=== PATIENT | female | born 1950 | race African-American/Black ===

== ENCOUNTER 2017-07-16 00:51 | Inpatient (IN) | payer BC, OTHER ==
[~2017-07-16] VITALS: Ht 162.6 cm; Wt 86.6 kg
[2017-07-16] VITALS (7 sets, daily range): BP systolic 162–188; BP diastolic 77–93
--- NOTE | ~2017-07-16 | HC ---
[facility] [place] [address] CONSULTATION Name: TONECECY Timmons Room #: 421-P ADM IN M.R.#: [id number] Admission: 07/16/17 Attend Phys: Alexis Odom DO Discharge: Date of : 50 Report #: [id number] THIS REPORT FOR: //name// CC: Alexis Borrero REASON FOR CONSULTATION: Abdominal pain consistent with small-bowel obstruction. HISTORY OF PRESENT ILLNESS: The patient is a 66-year-old who started to have abdominal pain at about 8:00 last night. She had some food, but not much, at 6:00. The pain started in the lower part of her abdomen and then moved up to the upper abdomen. It was sharp and cramping. She said about 30 years ago, she had an episode similar to this. Four years ago, she had a milder episode that did not require hospitalization. The patient came to the Emergency Room. She made herself vomit when she was at home and then she had another episode of vomiting when she was here. With the pain medication, she does feel better. She was doing pretty well and then this afternoon, her pain came back again located in the epigastric area. She had a bowel movement today. She had several bowel movements yesterday prior to the onset of pain. The patient did have a significant surgical history with a midline scar. She had a hysterectomy. She thinks her appendix was removed at that time. She says she had an abscess in the ovary. Today, the patient has had 2 doses of morphine. The patient's pain has improved with the shot. She is not having severe pain at this point. She has not passed any gas. She had a KUB, which was nonspecific. CT scan and KUB were reviewed. CT KUB was also shown to the patient. The CT scan does show bowel obstruction and fecalization of small bowel content, edema of the bowel located just below the umbilicus area. The distal small bowel is decompressed. PHYSICAL EXAMINATION: GENERAL: The patient is alert and oriented. She is not in acute distress. ABDOMEN: Mild to moderately distended. She does have bowel sounds that are present, slightly high pitched. She has a long midline scar and scar does look at the umbilical level. She does have moderate tenderness to palpation, particularly in this area. There is no rigidity, no rebound. IMPRESSION: The patient is a 66-year-old who started having pain last night. The clinical picture is consistent with a bowel obstruction. This is likely due to adhesions from prior surgery. She could have an adhesive band there. The KUB was reviewed and was nonspecific this afternoon. I do not think it is necessary that her bowel obstruction is resolved. I think she has a distended bowel that is fluid filled and not visible on the KUB. Her stomach and upper small bowel were not very distended. I am not sure NG tube will help that much. She has not thrown up any more. The patient has urinated. She says her urine looks pretty clear, light color. There are no I's and O's reported. [address] [address] CONSULTATION Name: WAYNECECY Room #: 421-P ADM IN M.R.#: [id number] Admission: 07/16/17 Attend Phys: Alexis Odom DO Discharge: Date of : 50 Report #: [id number] LABORATORY DATA: Her white count is pretty normal at 11.5. Lipase is normal. We will do lactic acid in the morning and amylase in the morning. I do not think she has compromised bowel at this point. If she does not resolve, she may need surgical intervention. Possibly laparoscopic approach. <ELECTRONICALLY SIGNED> By: Austin Thurman MD 07/17/17 1426 [id number] [id number] Austin Thurman MD /nt
[~2017-07-16 00:51] MED LIST: AMARYL2 MG PO; BACTRIM DS TAB1 EACH PO; CARVEDILOL12.5 MG PO; CEFTIN 250 MG250 MG PO; CRESTOR10 MG PO; DILTIAZEM ER360 MG PO; HYDRALAZINE 2525 MG PO; HYDRALAZINE 5050 MG PO; HYZAAR 100-251 EACH PO; IBUPROFEN 600600 M1 PO; KLOR-CON 1010 MEQ PO; KLOR-CON M2020 MEQ PO; METFORMIN HCL500 MG PO; ONDANSETRON HCL4 M2 PO; PANTOPRAZOLE SO40 M1 PO; POTASSIUM20 PO; ROSUVASTATIN CA40 MG PO; SLOW-MAG64 MG PO; TAZTIA XT360 M1 PO; TYLENOL325 MG PO; ZOFRAN ODT4 MG PO
[2017-07-16 01:26] LABS: ABSOLUTE NEUTROPHILS 8.8 thou/uL (1.4-8.2); BASOPHILS 0.6 % (0.0-2.0); EOSINOPHILS 0.8 % (0.0-3.0); HEMATOCRIT 37.3 % (37.0-47.0); HEMOGLOBIN 12.2 gm/dL (12.0-15.0); LYMPHOCYTES 16.2 % (24.0-44.0); MCH 25.4 pg (26.0-34.0); MCHC 32.6 g/dL (28.0-37.0); MCV 77.9 fL (80.0-100.0); MONOCYTES 6.2 % (1.0-8.0); PLATELET COUNT 317 thou/uL (150-400); POLYS 76.2 % (36.0-66.0); RBC 4.79 mil/uL (4.20-5.00); RDW 14.8 % (10.5-14.5); WBC 11.5 thou/uL (4.0-11.0)
[2017-07-16 01:33] LABS: CALCIUM 9.7 mg/dL (8.5-10.1)
[2017-07-16 01:36] LABS: POTASSIUM 2.9 mmol/L (3.5-5.1)
[2017-07-16 01:38] LABS: ALBUMIN 3.5 g/dL (3.4-5.0); TOTAL BILIRUBIN 0.5 mg/dL (<0.1-1.0); TOTAL PROTEIN 7.5 g/dL (6.4-8.2)
[2017-07-16 02:09] LABS: URINE BILIRUBIN NEGATIVE (Negative); URINE BLOOD NEGATIVE (Negative); URINE CLARITY CLEAR; URINE COLOR YELLOW; URINE GLUCOSE-RANDOM* NEGATIVE (Negative); URINE KETONES NEGATIVE (Negative); URINE LEUKOCYTES-REFLEX NEGATIVE (Negative); URINE NITRITE-REFLEX NEGATIVE (Negative); URINE PROTEIN (DIPSTICK) NEGATIVE (Negative); URINE SPECIFIC GRAVITY 1.015 (1.005-1.035); URINE UROBILINOGEN 0.2 E.U./dl (0.2-1.0)
[2017-07-17] VITALS: BP 150/78
[2017-07-17 03:59] VITALS: BP 145/79
[2017-07-17 06:42] LABS: ABSOLUTE NEUTROPHILS 4.8 thou/uL (1.4-8.2); BASOPHILS 0.5 % (0.0-2.0); EOSINOPHILS 1.8 % (0.0-3.0); HEMATOCRIT 32.5 % (37.0-47.0); HEMOGLOBIN 10.6 gm/dL (12.0-15.0); LYMPHOCYTES 27.2 % (24.0-44.0); MCH 25.5 pg (26.0-34.0); MCHC 32.4 g/dL (28.0-37.0); MCV 78.5 fL (80.0-100.0); MONOCYTES 10.4 % (1.0-8.0); PLATELET COUNT 271 thou/uL (150-400); POLYS 60.1 % (36.0-66.0); RBC 4.14 mil/uL (4.20-5.00); RDW 15.2 % (10.5-14.5)
[2017-07-17 06:52] LABS: CALCIUM 8.4 mg/dL (8.5-10.1); CREATININE 0.8 mg/dL (0.6-1.0); POTASSIUM 3.2 mmol/L (3.5-5.1)
[2017-07-17 08:05] VITALS: BP 161/77
[2017-07-17 15:31] VITALS: BP 169/68
[2017-07-17 22:37] VITALS: BP 191/89
[2017-07-17 22:59] VITALS: BP 164/80
[2017-07-18 04:23] VITALS: BP 121/82
[2017-07-18 04:47] VITALS: BP 182/83
[2017-07-18 04:54] VITALS: BP 182/83
[2017-07-18 05:28] LABS: ABSOLUTE NEUTROPHILS 4.1 thou/uL (1.4-8.2); BASOPHILS 0.7 % (0.0-2.0); EOSINOPHILS 3.2 % (0.0-3.0); HEMOGLOBIN 11.4 gm/dL (12.0-15.0); LYMPHOCYTES 30.4 % (24.0-44.0); MCH 25.7 pg (26.0-34.0); MCHC 32.7 g/dL (28.0-37.0); MCV 78.6 fL (80.0-100.0); MONOCYTES 11.3 % (1.0-8.0); PLATELET COUNT 295 thou/uL (150-400); POLYS 54.4 % (36.0-66.0); RBC 4.45 mil/uL (4.20-5.00); RDW 14.7 % (10.5-14.5); WBC 7.5 thou/uL (4.0-11.0)
[2017-07-18 05:51] LABS: CALCIUM 8.8 mg/dL (8.5-10.1); CREATININE 0.7 mg/dL (0.6-1.0); POTASSIUM 3.4 mmol/L (3.5-5.1)
[2017-07-18 07:31] VITALS: BP 154/73
[2017-07-18 15:53] VITALS: BP 177/74
[2017-07-18 20:47] VITALS: BP 115/85
[2017-07-19 00:39] VITALS: BP 167/79
[2017-07-19 04:36] VITALS: BP 176/85
[2017-07-19 05:33] LABS: BASOPHILS 0.8 % (0.0-2.0); EOSINOPHILS 2.5 % (0.0-3.0); HEMATOCRIT 33.8 % (37.0-47.0); LYMPHOCYTES 29.4 % (24.0-44.0); MCH 25.5 pg (26.0-34.0); MCHC 32.7 g/dL (28.0-37.0); MONOCYTES 10.7 % (1.0-8.0); PLATELET COUNT 294 thou/uL (150-400); POLYS 56.6 % (36.0-66.0); RBC 4.33 mil/uL (4.20-5.00); RDW 15.2 % (10.5-14.5); WBC 8.8 thou/uL (4.0-11.0)
[2017-07-19 05:40] LABS: CALCIUM 8.8 mg/dL (8.5-10.1); CREATININE 0.8 mg/dL (0.6-1.0); POTASSIUM 3.4 mmol/L (3.5-5.1)
[2017-07-19 07:40] VITALS: BP 174/81
[2017-07-19 13:37] VITALS: BP 174/81
== END 2017-07-19 14:30 | disposition home or self-care (01) | DRG 390 ==
LOC: ER 00:51 → EROBS 03:25 → 4E 03:25
PROVIDERS: Emergency Medicine; Family Medicine
DX: K56.600 Partial intestinal obstruction, unspecified as to cause (principal); E11.9 Type 2 diabetes mellitus without complications; I10 Essential (primary) hypertension; J45.909 Unspecified asthma, uncomplicated; E87.6 Hypokalemia; E83.42 Hypomagnesemia; Z79.84 Long term (current) use of oral hypoglycemic drugs; Z79.899 Other long term (current) drug therapy; Z87.891 Personal history of nicotine dependence; Z86.010 Personal history of colon polyps; Z90.49 Acquired absence of other specified parts of digestive tract; Z90.710 Acquired absence of both cervix and uterus
CPT/HCPCS: 10183

== ENCOUNTER 2019-11-20 21:06 | Emergency (ER) | payer BC, OTHER ==
[~2019-11-20] VITALS: Ht 162.6 cm; Wt 86.2 kg
[2019-11-20] MEDS ORDERED: CARVEDILOL25 MG PO (21:19)
[2019-11-20] MEDS ORDERED: HYDRALAZINE 5050 MG PO (21:19)
[2019-11-20 22:09] LABS: ABSOLUTE NEUTROPHILS 11.1 thou/uL (1.4-8.2); BASOPHILS 0.6 % (0.0-2.0); EOSINOPHILS 0.3 % (0.0-3.0); HEMATOCRIT 37.2 % (37.0-47.0); HEMOGLOBIN 12.1 gm/dL (12.0-15.0); LYMPHOCYTES 14.9 % (24.0-44.0); MCH 25.8 pg (26.0-34.0); MCHC 32.5 g/dL (28.0-37.0); MCV 79.5 fL (80.0-100.0); MONOCYTES 8.1 % (1.0-8.0); PLATELET COUNT 350 thou/uL (150-400); POLYS 76.1 % (36.0-66.0); RBC 4.68 mil/uL (4.20-5.00); RDW 15.7 % (10.5-14.5); WBC 14.5 thou/uL (4.0-11.0)
[2019-11-20 22:21] LABS: CALCIUM 9.1 mg/dL (8.5-10.1); CREATININE 1.1 mg/dL (0.6-1.0); POTASSIUM 3.1 mmol/L (3.5-5.1)
[2019-11-20 22:46] VITALS: BP 183/96
--- NOTE | 2019-11-21 14:20 | EKG ---
[facility] [place] [address] ELECTROCARDIOGRAM REPORT Name: CECY WAYNE Room #: DEP [facility]#: [id number] Admission: 11/20/19 Attend Phys: Discharge: 11/20/19 Date of : 50 Report #: [id number] THIS REPORT FOR: cc: Alirio Borrero Theodore M. DO Couchonnal, Luis F. MD ~ THIS REPORT FOR: //name// [facility] ED Test Date: 2019-11-20 Test Time: 21:27:20 Pat Name: CECY WAYNE Department: Room: Gender: F [employer]: [place] : 1950 Requested By: Brent Chapin Order Number: [id number] MD: Felipe Mark Measurements Intervals [place] Rate: 77 P: 59 LA: 157 QRS: -4 QRSD: 97 T: 47 QT: 381 QTc: 432 Interpretive Statements Sinus rhythm Compared to ECG 12/12/2015 23:39:46 No significant changes Electronically Signed On 11-21-2019 14:20:50 CDT by Felipe Mark [email or web address] <ELECTRONICALLY SIGNED> By: Felipe Mark MD 11/21/19 1420 26 26 Felipe Mark MD /EPI
== END 2019-11-20 22:46 | disposition home or self-care (01) ==
LOC: ER 21:06
PROVIDERS: Emergency Medicine
DX: I10 Essential (primary) hypertension (principal); E11.9 Type 2 diabetes mellitus without complications; J45.909 Unspecified asthma, uncomplicated; Z90.710 Acquired absence of both cervix and uterus; Z90.49 Acquired absence of other specified parts of digestive tract; Z87.891 Personal history of nicotine dependence; Z79.899 Other long term (current) drug therapy